=== PATIENT | female | born 1980 | race Caucasian/White ===

== ENCOUNTER 2016-12-04 14:29 | Outpatient (CLI) | payer OTHER | END 2016-12-04 14:30 | disposition critical access hospital (66) | LOC: EMS 14:29 | PROVIDERS: ATTEND Surgery | DX: R56.9 Unspecified convulsions (principal) | CPT/HCPCS: A0425; A0429 ==

== ENCOUNTER 2016-12-04 14:48 | Emergency (ER) | payer OTHER ==
--- NOTE | 2016-12-04 14:59 | ED Physician Documentation ---
PD HPI SEIZURE - Stated complaint Stated Complaint: SEIZURE - Chief complaint Chief Complaint: General - History obtained from History obtained from: Patient - History of Present Illness Timing - onset: Today Witnessed: Witnessed (months. Denies alchol nor drugs. Some tongue biting but no other injury.) Number of seizures: Single, Lasted minutes Description of seizure activity: Generalized Injury during seizure: Bit tongue Associated symptoms: None History of seizures: Known seizure disorder Contributing factors: No: Off meds (missed dose this morning but takes regularly otherwise.), Changed meds, Head injury, Substance abuse, EtOH withdrawal, Fever, Sleep deprivation Similar symptoms before: Diagnosis (epilepsy) Recently seen: Not recently seen Review of Systems Constitutional: denies: Fever, Chills Nose: denies: Rhinorrhea / runny nose, Congestion Throat: denies: Sore throat Respiratory: denies: Cough GI: denies: Nausea, Vomiting, Diarrhea : denies: Dysuria, Frequency, Discharge Skin: denies: Rash, Lesions Musculoskeletal: denies: Neck pain, Back pain PD PAST MEDICAL HISTORY - Past Medical History Cardiovascular: None Respiratory: None Neuro: Seizure disorder Endocrine/Autoimmune: None - Present Medications Home Medications: Ambulatory Orders Medication Instructions Recorded Confirmed Lamotrigine [Lamictal] 200 mg BID 12/04/16 12/04/16 Levothyroxine Sodium [Synthroid] 112 mcg DAILY 12/04/16 12/04/16 - Allergies Allergies/Adverse Reactions: Allergies Allergy/AdvReac Type Severity Reaction Status Date / Time No Known Drug Allergies Allergy Verified 12/04/16 14:58 PD ED PE NORMAL - Vitals Vital signs reviewed: Yes - General General: Alert and oriented X 3, No acute distress, Well developed/nourished - HEENT HEENT: Atraumatic, PERRL, Moist mucous membranes, Other (lateral tongue abrasion ) - Neck Neck: Supple, no meningeal sign, No adenopathy - Cardiac Cardiac: RRR, No murmur - Respiratory Respiratory: Clear bilaterally - Abdomen Abdomen: Soft, Non tender - Derm Derm: Normal color, Warm and dry - Extremities Extremities: No tenderness to palpate, Normal ROM s pain - Neuro Neuro: Alert and oriented X 3, 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 She appears well. No particular testing needed. She agrees. ), d/w patient Departure - Departure Disposition: 01 Home, Self Care Clinical Impression: Recurrent seizures Condition: Stable Record reviewed to determine appropriate education?: Yes Instructions: ED Seizure Recurrent Comments: Drink lots of fluids. Regular medications. Recheck as needed. Discharge Date/Time: 12/04/16 15:13
[2016-12-04 15:09] VITALS: BP 141/95
== END 2016-12-04 15:13 | disposition home or self-care (01) ==
LOC: EDUNIT# → ED 14:48
DX: G40.909 Epilepsy, unspecified, not intractable, without status epilepticus (principal)
CPT/HCPCS: 99283; 99284

== ENCOUNTER 2017-09-10 20:56 | Emergency (ER) | payer BC, OTHER ==
[2017-09-10 21:07] VITALS: BP 126/99
--- NOTE | 2017-09-10 21:33 | XRAY Report ---
EXAM: LEFT KNEE RADIOGRAPHY EXAM DATE: 09/10/2017 09:22 PM. CLINICAL HISTORY: Sports injury with twisting. COMPARISON: None. TECHNIQUE: 4 views. FINDINGS: Bones: Normal. No fractures or bone lesions. Joints: Normal. No effusion. No subluxations. Soft Tissues: Normal. No soft tissue swelling. IMPRESSION: Normal knee radiography. [facility] Referring Provider Line: [phone] SITE ID: [id number]
--- NOTE | 2017-09-10 22:15 | ED Physician Documentation ---
PD HPI LOWER EXT INJURY - Stated complaint Stated Complaint: LT KNEE PX - Chief complaint Chief Complaint: Trauma Ext - History obtained from History obtained from: Patient - History of Present Illness PD HPI LOW EXT INJURY LOCATION: Other (She has a history of right ACL repair. Today in judo she was thrown feels like her knee was forcefully hyperflexed and everted. She can walk but it is painful.) Review of Systems Constitutional: denies: Fever, Chills Cardiac: reports: Reviewed and negative Respiratory: reports: Reviewed and negative PD PAST MEDICAL HISTORY - Past Medical History Cardiovascular: None Respiratory: None Neuro: Seizure disorder Endocrine/Autoimmune: None - Past Surgical History Past Surgical History: No - Present Medications Home Medications: Ambulatory Orders Medication Instructions Recorded Confirmed Levothyroxine Sodium [Synthroid] 112 mcg DAILY 12/04/16 12/04/16 lamoTRIgine [Lamictal] 200 mg BID 12/04/16 12/04/16 - Allergies Allergies/Adverse Reactions: Allergies Allergy/AdvReac Type Severity Reaction Status Date / Time No Known Drug Allergies Allergy Verified 09/10/17 21:06 - Social History Does the pt smoke?: No Smoking Status: Never smoker Does the pt drink ETOH?: No Does the pt have substance abuse?: No - Immunizations Immunizations are current?: Yes - POLST Patient has POLST: No PD ED PE NORMAL - Vitals Vital signs reviewed: Yes - General General: Alert and oriented X 3, No acute distress - Extremities Extremities: Other (Left knee is without an effusion, she is tender medially and posteriorly. Ligamentous is testing is intact but she does have a lot of pain with MCL testing. Negative grind testing.) - Neuro Neuro: Alert and oriented X 3, Normal speech Results - Vitals Vitals: Vital Signs - 24 hr 09/10/17 21:03 Temperature 36.7 C Heart Rate 75 Respiratory 16 Rate Blood Pressure 126/99 H O2 Saturation 99 Oxygen O2 Source Room air - Rads (name of study) 4v L knee Radiology: EMP read contemporaneously (NAD) PD MEDICAL DECISION MAKING - ED course ED course: 36-year-old woman with examination consistent with left knee MCL sprain. She declined pain medication. She was placed in a knee brace and orthopedic follow- up was advised. Departure - Departure Disposition: 01 Home, Self Care Clinical Impression: Sprain of medial collateral ligament of left knee Qualifiers: Encounter type: initial encounter Qualified Code(s): S83.412A - Sprain of medial collateral ligament of left knee, initial encounter Condition: Good Record reviewed to determine appropriate education?: Yes Instructions: ED Sprain Knee Collateral Ligaments Comments: Follow-up with your orthopedic surgeon for consideration of physical therapy versus MRI. Return if worse. Your blood pressure was elevated today on check into the emergency department. This does not mean that you have hypertension, it is a common phenomenon to come to the emergency department and have elevated blood pressure. I recommend that you see your primary care physician within the week to have it rechecked when you are feeling better. Forms: Activity restrictions
== END 2017-09-10 22:28 | disposition home or self-care (01) ==
LOC: ED 20:56
DX: S83.412A Sprain of medial collateral ligament of left knee, initial encounter (principal); X50.9XXA Other and unspecified overexertion or strenuous movements or postures, initial encounter; Y93.75 Activity, martial arts; R03.0 Elevated blood-pressure reading, without diagnosis of hypertension
CPT/HCPCS: 99283

== ENCOUNTER 2019-02-25 12:47 | Outpatient (CLI) | payer BC ==
[2019-02-25 12:50] LABS: BASOPHILS % (AUTO) 0.8 %; EOSINOPHILS # (AUTO) 0.3 10^3/uL (0.0-0.7); HGB - HEMOGLOBIN 14.5 g/dL (12.0-16.0); LYMPHOCYTES # (AUTO) 1.5 10^3/uL (1.5-3.5); LYMPHOCYTES % (AUTO) 28.7 %; MEAN CORPUSCULAR HEMOGLOBIN 30.5 pg (27.0-31.0); MEAN CORPUSCULAR VOLUME 89.7 fL (81.0-99.0); MEAN PLATELET VOLUME 10.8 fL (7.9-10.8); MONOCYTES # (AUTO) 0.5 10^3/uL (0.0-1.0); MONOCYTES % (AUTO) 8.9 %; NEUTROPHILS # (AUTO) 2.9 10^3/uL (1.5-6.6); NEUTROPHILS % (AUTO) 55.4 %; PLT - PLATELET COUNT 287 10^3/uL (130-450); RED BLOOD COUNT 4.76 10^6/uL (4.20-5.40); RED CELL DISTRIBUTION WIDTH 11.9 % (12.0-15.0); WHITE BLOOD COUNT 5.2 x10^3/uL (4.8-10.8)
[2019-02-25 13:32] LABS: ALBUMIN 4.1 g/dL (3.2-5.5); ALBUMIN/GLOBULIN RATIO 1.3 (1.0-2.2); ALKALINE PHOSPHATASE 46 IU/L (42-121); ALT ALANINE AMINOTRANSFERASE 14 IU/L (10-60); AST ASPARTATE AMINOTRANSFERASE 14 IU/L (10-42); BILIRUBIN,TOTAL 0.8 mg/dL (0.2-1.0); BUN - BLOOD UREA NITROGEN 9 mg/dL (6-20); CARBON DIOXIDE - CO2 26 mmol/L (21-32); CHLORIDE 106 mmol/L (101-111); CHOL/HDL RATIO 4.3 (<4.4); CHOLESTEROL 186 mg/dL; CREATININE 0.8 mg/dL (0.4-1.0); GFR - MDRD 79 (>89); GLUCOSE 94 mg/dL (70-100); HDL CHOLESTEROL 43 mg/dL; LDL CHOLESTEROL,CALCULATED 128 mg/dL; SODIUM 138 mmol/L (135-145); TOTAL PROTEIN 7.3 g/dL (6.7-8.2); VLDL CHOLESTEROL 15 mg/dL
== END 2019-02-25 23:59 | disposition home or self-care (01) ==
LOC: LAB.WCP 12:47
PROVIDERS: ATTEND Physician Assistant
DX: E03.9 Hypothyroidism, unspecified (principal); G40.409 Other generalized epilepsy and epileptic syndromes, not intractable, without status epilepticus
CPT/HCPCS: 36415; 80053; 80061; 83721; 84443; 85025

== ENCOUNTER 2020-04-21 15:43 | Emergency (ER) | payer BC ==
[2020-04-21 16:34] VITALS: BP 137/89
--- NOTE | 2020-04-21 17:14 | ED Physician Documentation ---
PD HPI UPPER EXT INJURY - Stated complaint Stated Complaint: SHOULDER INJ - Chief complaint Chief Complaint: Ext Problem - History obtained from History obtained from: Patient - History of Present Illness Location: Left, Shoulder Type of injury: Blunt / blow (Rain in judo and had her opponent come down on the top of her shoulder with an elbow this morning. Pain with range of motion since that time.) Where injury occurred: Other (judo dojo) Timing - onset: Today (this morning) Timing - duration: Hours Timing - details: Abrupt onset, Still present Worsened by: Moving, Palpating (at the AC area) Associated symptoms: No: Weakness, Numbness Similar symptoms before: Has not had sx before Review of Systems Skin: denies: Abrasion (s), Laceration (s) Neurologic: denies: Focal weakness, Numbness PD PAST MEDICAL HISTORY - Past Medical History Cardiovascular: None Respiratory: None Endocrine/Autoimmune: None - Past Surgical History Past Surgical History: No - Present Medications Home Medications: Ambulatory Orders Medication Instructions Recorded Confirmed Levothyroxine Sodium [Synthroid] 112 mcg DAILY 12/04/16 12/04/16 lamoTRIgine [Lamictal] 200 mg BID 12/04/16 12/04/16 - Allergies Allergies/Adverse Reactions: Allergies Allergy/AdvReac Type Severity Reaction Status Date / Time No Known Drug Allergies Allergy Verified 04/21/20 16:34 - Social History Does the pt smoke?: No Smoking Status: Never smoker Does the pt drink ETOH?: No Does the pt have substance abuse?: No - Immunizations Immunizations are current?: Yes - POLST Patient has POLST: No PD ED PE NORMAL - Vitals Vital signs reviewed: Yes - General General: Alert and oriented X 3, No acute distress (guarding ROM of the left arm to her side. ), Well developed/nourished - Back Back: No spinal TTP - Derm Derm: Normal color, Warm and dry - Extremities Extremities: Other (Tender at the distal clavicle and AC area, with slight feeling of lift/swelling at the AC area. No dislocation. ) - Neuro Neuro: No motor deficit, No sensory deficit Results - Vitals Vitals: Vital Signs - 24 hr 04/21/20 16:30 Temperature 36.6 C Heart Rate 67 Respiratory 16 Rate Blood Pressure 137/89 H O2 Saturation 99 Oxygen O2 Source Room air - Rads (name of study) left shoulder Radiology: Prelim report reviewed, EMP read contemporaneously (elevation of distal clavicle c/w AC separation. ), See rad report PD MEDICAL DECISION MAKING - ED course Complexity details: reviewed results, considered differential, d/w patient Departure - Departure Disposition: 01 Home, Self Care Clinical Impression: Acromioclavicular separation Qualifiers: Encounter type: initial encounter Laterality: left Qualified Code(s): S43.102A - Unspecified dislocation of left acromioclavicular joint, initial encounter Condition: Stable Record reviewed to determine appropriate education?: Yes Instructions: ED Sprain AC Joint Follow-Up: Nneka Barrett PA [Primary Care Provider] - Dominick Palomino MD [Provider Admit Priv/Credential] - Comments: Does appear that you have some ligament injury at the AC joint. No overhead reaching, push pull, heavy lifting for 3 to 4 weeks for this to heal. Use the sling to support the shoulder to decrease stretch on the ligaments. Gentle range of motion so it does not stiffen. Anti-inflammatory such as naproxen or ibuprofen 2-3 times a day and add Tylenol if needed for pains. Follow-up with your primary care or more particularly orthopedics for recheck to ensure its healing adequately. Call for an appointment in follow-up in about a week and a half.
--- NOTE | 2020-04-21 17:25 | XRAY Report ---
PROCEDURE: Shoulder 3 View LT INDICATIONS: struck AC/distal clavicle area; pain TECHNIQUE: 3 views of the shoulder were acquired. COMPARISON: None. FINDINGS: Bones: No fractures or dislocations. The left distal clavicle is minimally high riding (2 to 3 mm). No suspicious bony lesions. Visualized ribs appear intact. Soft tissues: No suspicious soft tissue calcifications. IMPRESSION: Minimal, potential acromioclavicular separation. If clinically appropriate, please consider a dedicated bilateral shoulder series, performed with and without weights for further evaluation. Reviewed by: Vasiliy Bell MD on 04/21/2020 4:23 PM [facility] Approved by: Vasiliy Bell MD on 04/21/2020 4:23 PM [facility] Station ID: [id number]
== END 2020-04-21 17:23 | disposition home or self-care (01) ==
LOC: ED 15:43
DX: S43.102A Unspecified dislocation of left acromioclavicular joint, initial encounter (principal); W50.0XXA Accidental hit or strike by another person, initial encounter; Y93.75 Activity, martial arts
CPT/HCPCS: 99282; 99283

== ENCOUNTER 2021-02-20 07:37 | Emergency (ER) | payer BC, MEDICAID ==
[2021-02-20] MEDS ORDERED: KETOROLAC 60 MG/2 ML VIAL IM STA (08:22)
--- NOTE | 2021-02-20 08:29 | ED Physician Documentation ---
PD HPI LOWER EXT INJURY - Stated complaint Stated Complaint: RT ANKLE INJ - Chief complaint Chief Complaint: Ext Problem - History obtained from History obtained from: Patient - Additional information Additional information: Patient comes emergency department chief complaint of right ankle pain and swelling after an injury 2 nights ago. She states she was sparring with a partner at judo class when her right foot got stuck behind the partner's knee. The patient went down to the ground with her partner and her ankle was forcibly deviated. Patient states she has had pain and increasing swelling and bruising since. She has not been bearing weight but has been getting around with crutches. No other injuries or complaints. No numbness or tingling. Patient is right side dominant. Review of Systems Ten Systems: 10 systems reviewed and negative Constitutional: reports: Reviewed and negative Eyes: reports: Reviewed and negative Ears: reports: Reviewed and negative Nose: reports: Reviewed and negative Throat: reports: Reviewed and negative Cardiac: reports: Reviewed and negative Respiratory: reports: Reviewed and negative GI: reports: Reviewed and negative : reports: Reviewed and negative Skin: reports: Reviewed and negative Musculoskeletal: reports: Joint pain, Joint swelling Neurologic: reports: Reviewed and negative Psychiatric: reports: Reviewed and negative Endocrine: reports: Reviewed and negative Immunocompromised: reports: Reviewed and negative PD PAST MEDICAL HISTORY - Past Medical History Past Medical History: Yes Cardiovascular: None Respiratory: None Neuro: Seizure disorder Endocrine/Autoimmune: HyPOthyroidism GI: None 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 : None HEENT: None Psych: None Musculoskeletal: None Derm: None - Past Surgical History Past Surgical History: No Ortho: ACL reconstruction - Present Medications Home Medications: Ambulatory Orders Medication Instructions Recorded Confirmed Levothyroxine Sodium [Synthroid] 112 mcg ORAL DAILY 12/04/16 02/20/21 lamoTRIgine [Lamictal] 200 mg ORAL BID 12/04/16 02/20/21 Ondansetron Odt [Zofran] 4 mg TL Q6H PRN #10 tablet 02/20/21 Oxycodone HCl/Acetaminophen 1 - 2 each PO Q6H PRN #20 tablet 02/20/21 [Percocet 5-325 mg Tablet] - Allergies Allergies/Adverse Reactions: Allergies Allergy/AdvReac Type Severity Reaction Status Date / Time No Known Drug Allergies Allergy Verified 02/20/21 07:52 - Social History Does the pt smoke?: No Smoking Status: Never smoker Does the pt drink ETOH?: No Does the pt have substance abuse?: No - Immunizations Immunizations are current?: Yes - POLST Patient has POLST: No PD ED PE NORMAL - Vitals Vital signs reviewed: Yes - General General: Alert and oriented X 3, No acute distress - HEENT HEENT: Atraumatic, PERRL, EOMI, Moist mucous membranes - Neck Neck: Supple, no meningeal sign - Cardiac Cardiac: Strong equal pulses - Respiratory Respiratory: No respiratory distress - Derm Derm: Warm and dry, Other (Contusion surrounding right ankle) - Extremities Extremities: No deformity, Other (Marked edema of right ankle globally. Tenderness to palpation globally. Severely limited range of motion, secondary to pain and swelling. No other musculoskeletal area affected. No obvious deformity.) - Neuro Neuro: Alert and oriented X 3 - Psych Psych: Normal mood, Normal affect Results - Vitals Vitals: Vital Signs - 24 hr 02/20/21 02/20/21 07:47 09:38 Temperature 36.9 C 36.4 C L Heart Rate 73 60 Respiratory 15 14 Rate Blood Pressure 129/87 H 138/80 H O2 Saturation 100 100 Oxygen O2 Source Room air - Rads (name of study) R ankle XR Radiology: Final report received, EMP read indepedently, See rad report (Trimalleolar fx) Procedures - Splint (location) R ankle Splint applied by: Tech Type of splint: Posterior, Stirrup Other: Patient tolerated well, No complications, Neurovascular intact, Crutches provided PD MEDICAL DECISION MAKING - ED course Complexity details: reviewed results, re-evaluated patient, considered differential, d/w patient ED course: X-ray was obtained and showed a trimalleolar fracture of the right ankle. I spoke with Dr. Palomino, who stated he would like the swelling to go down for couple of days before operating. He recommended splinting and aggressive elevat ion. I relayed these things to the patient, and she was placed in a bulky Marcus splint. She was instructed to be nonweightbearing and she already has crutches. She was given a dose of Toradol in the emergency department and I have given her prescription of stronger narcotic pain medication for home. She has been given the contact information for Dr. Palomino's office and instructed to call first bhavani boyce when she gets home today. Departure - Departure Disposition: Home, Self Care Clinical Impression: Trimalleolar fracture of ankle, closed Qualifiers: Encounter type: initial encounter Laterality: right Qualified Code(s): S82.851A - Displaced trimalleolar fracture of right lower leg, initial encounter for closed fracture Condition: Stable Instructions: ED Fx Ankle General Follow-Up: Dominick Palomino MD [Provider Admit Priv/Credential] - Prescriptions: Oxycodone HCl/Acetaminophen [Percocet 5-325 mg Tablet] 1 - 2 each PO Q6H PRN #20 tablet PRN Reason: pain Ondansetron Odt [Zofran] 4 mg TL Q6H PRN #10 tablet PRN Reason: Nausea / Vomiting Comments: Your right ankle x-ray shows a complex fracture involving both of your lower leg bones at the ankle joint. Unfortunately, this kind of fracture requires a surgical repair. Your case has been discussed with Dr. Palomino, our orthopedist on-call, who would like to see you in his office as soon as possible. Please call first thing when you get home this morning to make an appointment, and be sure to let them know that you were seen in the emergency department and that your emergency physician spoke directly with Dr. Palomino. Please let the staff know that he would like to see you this week in his office. Dr. Palomino would like you to aggressively elevate your right foot, as much as possible, to get as much of the swelling down as you can. This will make the surgery and recovery much better. You may take ibuprofen plus the pain medication prescribed. If you feel little sick to your stomach after taking the medication, you may take the nausea medicine as needed. If a single pill is too strong with regard to the narcotic pain medication, you may cut the pill in half if you wish. You may try applying ice, as well, to help with the swelling too. If your pain becomes unbearable, or you feel as if something else is going wrong with the ankle and foot, please return to the emergency department for reevaluation. Discharge Date/Time: 02/20/21 09:48
--- NOTE | 2021-02-20 09:10 | XRAY Report ---
PROCEDURE: Ankle 3 View RT INDICATIONS: Trauma TECHNIQUE: views of the ankle were acquired. COMPARISON: None. FINDINGS: There are acute mildly displaced fractures of the medial and lateral malleoli, both of which extend i nto the ankle mortise. There is also a mildly displaced fracture of the posterior malleolus. There is approximately 6 mm free fragment in the posterior and inferior joint space, projecting posterior to the talar dome on lateral view. Large tibiotalar joint effusion. Several ventral soft tissue swelling . IMPRESSION: Displaced fractures of the medial, lateral, and posterior malleoli. Approximately 6 mm fracture fragment loose body in the posterior joint space. Reviewed by: Sukumar Carr MD on 02/20/2021 9:08 AM PDT Approved by: Sukumar Carr MD on 02/20/2021 9:08 AM PDT Station ID: [id number]
[2021-02-20 09:38] VITALS: BP 138/80
== END 2021-02-20 09:48 | disposition home or self-care (01) ==
LOC: ED 07:37
DX: S82.851A Displaced trimalleolar fracture of right lower leg, initial encounter for closed fracture (principal); W50.2XXA Accidental twist by another person, initial encounter; Y93.75 Activity, martial arts
CPT/HCPCS: 29515; 99284

== ENCOUNTER 2021-02-21 13:47 | Outpatient (CLI) | payer MEDICAID ==
--- NOTE | 2021-02-21 14:21 | CT Report ---
PROCEDURE: LOWER EXTREMITY WO - RT INDICATIONS: DISPLACED TRIMALLEOLAR FX OF RIGHT LOWER LEG TECHNIQUE: Noncontrast 3 mm axial sections acquired of the right ankle, with coronal and sagittal reformats. COMPARISON: Ankle radiograph dated 02/20/2021. FINDINGS: Image quality: Excellent. Bones: As seen on ankle radiograph, there is an acute comminuted fracture involving distal fibular s haft with posterior and slightly lateral displacement and up to 4.5 mm diastases at fracture site. Ac gopal comminuted fracture is also seen involving posterior portion of distal tibia extending to posteri or aspect of posterior tibial plafond and up to 2 mm dorsal displacement and posterior tibial plafond fracture site. Several smaller posteriorly displaced fractured fragments also seen adjacent to poste rior aspect of tibiotalar joint. Acute comminuted oblique fracture is also seen involving base of the medial malleolus with minimal anterior and medial displacement at fracture site and up to 1 mm diast ases. There is also a inferiorly displaced medial malleolus tip fragment with up to 3 mm diastases. N o other fracture or dislocation is seen. No suspicious intraosseous lesion. Soft tissues: Significant soft tissue swelling surrounding ankle fracture site is seen. There is sug gestion of moderate tibiotalar joint effusion, no definite intra-articular loose body is noted. Achil les tendon is intact. Extensor, flexor, and peroneus tendons shows no full-thickness tendon rupture. IMPRESSION: 1. Acute comminuted and slightly displaced fractures involving distal fibular shaft, medial malleolus and posterior tibia extending to posterior tibial plateau as above. 2. Moderate joint effusion and marked ankle soft tissue swelling. Moderate joint effusion. No definit e intra-articular loose body. Reviewed by: Jorge Alberto Vargas MD on 02/21/2021 2:19 PM PDT Approved by: Jorge Alberto Vargas MD on 02/21/2021 2:19 PM PDT Station ID: [id number]
== END 2021-02-21 13:48 | disposition home or self-care (01) ==
LOC: DI 13:47
PROVIDERS: ATTEND Orthopaedic Surgery
DX: S82.831A Other fracture of upper and lower end of right fibula, initial encounter for closed fracture (principal); S82.51XA Displaced fracture of medial malleolus of right tibia, initial encounter for closed fracture; S82.141A Displaced bicondylar fracture of right tibia, initial encounter for closed fracture; M25.471 Effusion, right ankle

== ENCOUNTER 2021-02-27 11:33 | Day surgery (SDC) | payer MEDICAID ==
[2021-02-27] MEDS ORDERED: LACTATED RINGERS 1,000 ML IV ONE ×2 (11:45→17:48)
[2021-02-27] MEDS ORDERED: CELECOXIB 100 MG CAPSULE PO ONE (11:46)
[2021-02-27] MEDS ORDERED: ACETAMINOPHEN 1,000 MG/100 ML 100 ML IV ONE (11:46)
[2021-02-27] MEDS ORDERED: GABAPENTIN 400 MG CAPSULE ONE (11:46)
[2021-02-27] MEDS ORDERED: CEFAZOLIN SODIUM IN 0.9 % NACL 2 GM/100 ML BAG IV ONE (11:46)
[2021-02-27 12:10] LABS: HCG UR QUAL NEGATIVE
[2021-02-27] MEDS ORDERED: BACITRACIN ZINC OINT 1 PACKET TOP ONE (13:04)
[2021-02-27] MEDS ORDERED: LIDOCAINE MPF 2%-EPI 1:200000 20 ML VIAL ONE (13:04)
[2021-02-27] MEDS ORDERED: BUPIVACAINE 0.5%-EPI 1:200000 PF 30 ML VIAL ONE (13:04)
[2021-02-27] MEDS ORDERED: DEXAMETHASONE 4 MG/ML VIAL ONE (13:18)
[2021-02-27] MEDS ORDERED: LIDOCAINE-PF 2% 10 ML AMP SUBQ ONE (13:18)
[2021-02-27] MEDS ORDERED: MIDAZOLAM 2 MG/2 ML VIAL ONE (13:18)
[2021-02-27] MEDS ORDERED: SODIUM CHLORIDE 0.9% 10 ML VIAL IVP ONE (13:18)
[2021-02-27] MEDS ORDERED: ONDANSETRON 4 MG/2 ML VIAL ONE (13:18)
[2021-02-27] MEDS ORDERED: ROPIVACAINE 0.5% PF 20 ML AMPULE ONE ×2 (13:18→13:19)
[2021-02-27] MEDS ORDERED: PROPOFOL 200 MG/20 ML VIAL IVP ONE (13:18)
[2021-02-27] MEDS ORDERED: KETOROLAC 30 MG/ML VIAL ONE (13:18)
[2021-02-27] MEDS ORDERED: ROCURONIUM 50 MG/5 ML VIAL ONE (13:18)
[2021-02-27] MEDS ORDERED: DEXAMETHASONE 10 MG/ML VIAL ONE (13:19)
[2021-02-27] MEDS ORDERED: ATROPINE ABBOJECT 1 MG/10 ML SYRINGE IVP PRN (13:28)
[2021-02-27] MEDS ORDERED: METOCLOPRAMIDE 10 MG/2 ML VIAL IVP PRN (13:28)
[2021-02-27] MEDS ORDERED: ePHEDrine 50 MG/ML VIAL IVP PRN (13:28)
[2021-02-27] MEDS ORDERED: fentaNYL 100 MCG/2 ML VIAL IVP PRN (13:28)
[2021-02-27] MEDS ORDERED: HYDROmorphone 0.5 MG/0.5 ML SYRINGE IVP PRN (13:28)
[2021-02-27] MEDS ORDERED: MORPHINE 2 MG/ML CARPUJECT IVP PRN (13:28)
[2021-02-27] MEDS ORDERED: NALOXONE 0.4 MG/ML VIAL IVP PRN (13:28)
[2021-02-27] MEDS ORDERED: ONDANSETRON 4 MG/2 ML VIAL IVP PRN (13:28)
--- NOTE | 2021-02-27 13:28 | ANESTHESIA ---
Pre-Anesthesia VS, & Labs - Diagnosis right ankle fracture - Procedure right ankle ORIF Vital Signs: Temp Pulse Resp BP Pulse Ox 36.8 C 99 16 142/89 H 98 02/27/21 11:51 02/27/21 11:51 02/27/21 11:51 02/27/21 11:51 02/27/21 11:51 Height: 5 ft 6 in Weight (kg): 74.6 kg Body Mass Index: 26.5 BMI Classification: Overweight - NPO >8 hours - Is Patient ?: No - Lab Results Current Lab Results: Laboratory Tests 02/27/21 12:03: POC Whole Bld Glucose 93 Lab results reviewed: Yes Home Medications and Allergies Home Medications: Ambulatory Orders Ibuprofen 800 mg PO DAILY 02/26/21 Levothyroxine Sodium [Synthroid] 112 mcg ORAL DAILY 12/04/16 lamoTRIgine [Lamictal] 250 mg ORAL BID 12/04/16 Ibuprofen 800 mg PO DAILY 02/26/21 Allergies/Adverse Reactions: Allergies Allergy/AdvReac Type Severity Reaction Status Date / Time No Known Drug Allergies Allergy Verified 02/20/21 07:52 Anes History & Medical History - Anesthetic History Anesthesia Complications: reports: No previous complications Family history of Anesthesia Complications: Denies Family history of Malignant Hyperthermia: Denies - Medical History Cardiovascular: reports: None Pulmonary: reports: None Gastrointestinal: reports: None Urinary: reports: None Neuro: reports: Seizure disorder (last seizure 2017, took lamictal this AM) Musculoskeletal: reports: None Endocrine/Autoimmune: reports: HyPOthyroidism Blood Disorders: reports: None Skin: reports: None Smoking Status: Never smoker - Surgical History Orthopedic: reports: ACL reconstruction Exam General: Alert, Oriented x3, Cooperative, No acute distress Dental: WNL Mouth Openin Fingerbreadth Neck Mobility: Normal Mallampati classification: II Respiratory: Lungs clear, Normal breath sounds, No respiratory distress, No accessory muscle use Cardiovascular: Regular rate, Normal S1, Normal S2, No murmurs Plan Anesthesia Type: General, Popliteal Block, Adductor Block Consent for Procedure(s) Verified and Reviewed: Yes Code Status: Attempt Resuscitation ASA classification: 2-Mild systemic disease Is this case an emergency?: No
[2021-02-27] MEDS ORDERED: LACTATED RINGERS 1,000 ML IV SCH (14:00)
[2021-02-27] MEDS ORDERED: oxyCODONE 5 MG TABLET PO PRN (14:30)
[2021-02-27] MEDS ORDERED: KETOROLAC 15 MG/ML VIAL IVP STA (14:30)
[2021-02-27] MEDS ORDERED: VANCOMYCIN 1 GM VIAL MC ONE (16:55)
--- NOTE | 2021-02-27 17:43 | OPERATIVE REPORT ---
Operative Report - General Procedure Date: 02/27/21 Planned Procedure: Open reduction internal fixationRight ankle Pre-Op Diagnosis: Trimalleolar fracture right ankle Procedure Performed: Open reduction internal fixation medial malleolus, lateral malleolus and posterior malleolus right ankle: Arthrex fracture system utilized Post Op Diagnosis: Same as preoperative diagnosis - Procedure Note Primary Surgeon: Dominick Palomino MD Secondary Surgeon: Jensen VILLAGOMEZ Anesthesia Provider: Javy Saucedo CRNA Anesthesia Technique: General ET tube, Regional block Estimated Blood Loss (mL): 50 Indications: This is a 40-year-old active woman who injured her right ankle sparring in [facility] sustained isolated injury to right ankle with subsequent pain, swelling and bruising. X-rays and CT scan have been ordered and reviewed and show a displaced trimalleolar fracture of the right ankle with focal tibial plafond articular damage. The medial malleolar fragment was both posterior and anterior with a small fragment anteriorly and a larger fragment posteriorly. The lateral malleolus fracture was spiral and located at and above the joint line. Findings: Very small medial malleolar fracture fragment anteriorly, large metaphyseal posterior malleolar fracture. The posterior malleolus fracture was mostly posteromedial. There was a 3 to 4 mm loose body in the ankle joint from a talar dome defect medially. The lateral malleolar fracture was spiral and located at and above the joint line with intact syndesmosis Complications: None - Other Other Information/Narrative: The patient was brought to the operating room and placed in the supine position. She was placed with a bolster beneath the right hip. A pneumatic tourniquet was applied to the proximal right thigh. She was given a popliteal block and general endotracheal anesthesia. The right lower extremity was prepped and draped in sterile manner in the usual fashion. A timeout procedure was performed by the entire operating room team and all were in agreement. She was given 2 g of Ancef intravenously. The the right leg was exsanguinated and pneumatic tourniquet was elevated to 250 mmHg. The lateral side was approached with a longitudinal incision over the posterior edge of the fibula from tip of lateral malleolus and extended proximally. The fracture was exposed by subperiosteal dissection. The fracture hematoma was removed with curette and saline lavage. The fracture was reduced and stabilized with a 3.5 mm lag screw that was inserted perpendicular to fracture from proximal and anterior to posterior and distal. A lateral buttress plate was then applied with 6 cortices proximal and locking screws distally. This provided very nice fixation to the fibula. The distal syndesmosis was tested and was found to be intact with clamp stressing of the syndesmosis. The medial side of the ankle was approached in a posterior medial approach beginning posterior to the medial malleolus and extending it distally below the tip of the medial malleolus. Medial arthrotomy was made. The small avulsion fracture of the medial malleolus was identified, hematoma removed with curette and saline. A larger vertical posterior medial fracture was identified in the posterior tibia. This was stabilized with a K wire and a pointed bone clamp. A posterior tibial plate was then applied, a T-shaped. The plate was secured with push pins and K wires. Screws were inserted to provide a buttress if plate. This provided excellent fixation. The posterior approach was done between the posterior tibia and the posterior tibial tendon, protecting neurovascular bundle and leaving the posterior tibial tendon sheath intact distally to prevent subluxation. The tourniquet time was 2 hours. The tourniquet was deflated. Hemostasis was achieved with electrocautery. A gram of vancomycin powder was placed into each of the wounds. The subcutaneous tissue was closed with 2-0 Vicryl. The skin was closed standstill isreal. Xeroform, sterile gauze, cast padding, cotton batting, posterior fiberglass splint and Gold wrap was applied. The C-arm was used intermittently throughout the procedure and showed good alignment of the ankle mortise, good alignment of ankle fractures and internal fixation. A physician assistant analyst was felt to be a medical necessity and was used to protect vital structures, provide exposure and facilitate open reduction internal fixation using plate and screws.
[2021-02-27] MEDS ORDERED: KETOROLAC 15 MG/ML VIAL ONE (17:47)
[2021-02-27] MEDS ORDERED: HYDROmorphone 0.5 MG/0.5 ML SYRINGE ONE (18:29)
[2021-02-27 19:41] VITALS: BP 140/88
--- NOTE | 2021-02-27 21:34 | ANESTHESIA POST OP EVALUATION ---
Anesthesia Post Eval - Post Anesthesia Eval Vitals: Last Vital Signs Temp 37.0 C 02/27/21 19:33 Pulse 86 02/27/21 19:33 Resp 18 02/27/21 19:33 BP 140/88 H 02/27/21 19:33 Pulse Ox 100 02/27/21 19:33 CV Function Including HR & BP: Stable Pain Control: Satisfactory Nausea & Vomiting: Negative Mental Status: Baseline Respiratory Status: Airway Patent Hydration Status: Satisfactory Anesthesia Complications: None
--- NOTE | 2021-02-28 09:29 | XRAY Report ---
PROCEDURE: OR C-Arm Procedure INDICATIONS: surgery TECHNIQUE: 3 intraoperative fluoroscopic images of right ankle were obtained. COMPARISON: Ankle radiograph dated 02/20/2021. FINDINGS: Intraoperative fluoroscopic images of right ankle shows internal fixation of patient's known bimalleo lar fracture with surgical hardware in place. Ankle alignment is anatomic. Total fluoroscopy time is 9 seconds. IMPRESSION: Fluoroscopy guidance was provided intraoperatively for ORIF of right ankle. Reviewed by: Jorge Alberto Vargas MD on 02/28/2021 9:28 AM PDT Approved by: Jorge Alberto Vargas MD on 02/28/2021 9:28 AM PDT Station ID: [id number]
== END 2021-02-27 20:15 | disposition home or self-care (01) ==
LOC: SDS 11:33 → MS2 18:40 → SDS 18:40
PROVIDERS: ATTEND Orthopaedic Surgery
DX: S82.851A Displaced trimalleolar fracture of right lower leg, initial encounter for closed fracture (principal); X50.1XXA Overexertion from prolonged static or awkward postures, initial encounter; Y93.79 Activity, other specified sports and athletics; Z20.822 Contact with and (suspected) exposure to COVID-19; G40.409 Other generalized epilepsy and epileptic syndromes, not intractable, without status epilepticus; E03.9 Hypothyroidism, unspecified; Y99.8 Other external cause status; Z79.899 Other long term (current) drug therapy
CPT/HCPCS: 27823; 81025; 87635; A9270; C1713; J0131; J0690; J1170; J3370; J7120

== ENCOUNTER 2021-04-15 14:20 | Outpatient (CLI) | payer MEDICAID ==
--- NOTE | 2021-04-15 17:23 | XRAY Report ---
PROCEDURE: Ankle 3 View RT INDICATIONS: R ANKLE PX TECHNIQUE: 3 views of the ankle were acquired. COMPARISON: . FINDINGS: Bones: Postsurgical changes compatible with ORIF of lateral medial malleoli or fractures. Orthopedic hardware is intact. No lucencies at the bone hardware interface. Fractures have healed in anatomic a lignment. No acute fractures or dislocations. Ankle mortise is normally aligned. No suspicious bony lesions. 6 mm calcified loose intra-articular body in the posterior joint space is stable. Soft tissues: No tibiotalar joint effusion. Achilles tendon appears normal. IMPRESSION: 1. Expected postsurgical change from ORIF of right lateral and medial malleolar fractures. 2. No acute fracture. No acute osseous lesion. If there persistent symptoms or continued clinical con cern for pathology, then repeat plain film radiographs (7-10 days) or advanced imaging (CT, MR, bone scan) should be considered for further evaluation. 3. 6 mm ossification in the posterior tibiotalar joint space stable compared to prior exam. Reviewed by: Neema Perez MD, PhD on 04/15/2021 5:21 PM PDT Approved by: Neema Perez MD, PhD on 04/15/2021 5:21 PM PDT Station ID: [id number]
== END 2021-04-15 14:21 ==
LOC: DI.N 14:20
PROVIDERS: ATTEND Physician Assistant
DX: S82.851D Displaced trimalleolar fracture of right lower leg, subsequent encounter for closed fracture with routine healing (principal)